=== PATIENT | female | born 1965 | race Hispanic/Latino ===

== ENCOUNTER 2021-01-04 06:00 | Day surgery (SDC) | payer BC ==
[2020-12-27 15:53] LABS: BASOPHILS % (AUTO) 0.5 % (0.0-5.0); EOSINOPHILS % (AUTO) 2.7 % (0.0-8.0); MEAN CORPUSCULAR HEMOGLOBIN 28.9 pg (27.0-33.0); MEAN CORPUSCULAR VOLUME 87.7 fL (79-99); NEUTROPHILS % (AUTO) 56.5 % (40.0-77.0); PLATELET COUNT (AUTO) 270 K/uL (130-400); RED BLOOD CELL COUNT(AUTO) 4.22 MIL/uL (4.00-5.50); RED CELL DISTRIBUTION WIDTH 13.5 % (11.0-15.5)
[2020-12-27 16:04] LABS: CREATININE 1.2 mg/dL (0.5-1.5)
[2021-01-03 11:36] VITALS: BP 133/68
[2021-01-04] VITALS (13 sets, daily range): BP systolic 108–126; BP diastolic 60–84
[~2021-01-04] VITALS: Ht 165.1 cm; Wt 107.3 kg
[~2021-01-04 06:00] MED LIST: ESOM40CA PO; FEXO1TAB5 PO; GABA300S PO; LACTATED RINGERS 1000ML 1,000 ML IV SCH; VENL150C2 PO
[2021-01-04] MEDS: CEFAZOLIN SODIUM 1 GM VIAL IVP SCH ×2 (06:00→08:00)
[2021-01-04] MEDS ORDERED: LIDOCAINE HCL 400MG/20ML VIAL ONE (07:45)
[2021-01-04] MEDS ORDERED: MIDAZOLAM HCL 1 MG/ML 2ML VIAL ONE ×2 (07:47→08:11)
[2021-01-04] MEDS ORDERED: FENTANYL CITRATE PF 50 MCG/1 ML 2ML VIAL ONE (07:47)
[2021-01-04] MEDS ORDERED: MEPERIDINE-PF 25 MG/ML SYG ONE (08:41)
== END 2021-01-04 09:45 | disposition home or self-care (01) ==
LOC: DAH 06:00
PROVIDERS: ATTEND Orthopaedic Surgery
DX: M65.311 Trigger thumb, right thumb (principal); Z20.822 Contact with and (suspected) exposure to COVID-19; E66.9 Obesity, unspecified; K21.9 Gastro-esophageal reflux disease without esophagitis; I10 Essential (primary) hypertension; Z68.39 Body mass index [BMI] 39.0-39.9, adult; Z90.49 Acquired absence of other specified parts of digestive tract; Z98.891 History of uterine scar from previous surgery
CPT/HCPCS: 26055; 36415; 80048; 85025; 93005; A4215; A4216; A4221; A4222; A4223 ×2; A4663; A5120; A6223; A6260; C9803; J0690; J2175; J2250 ×2; J3010; J3490; J7120; U0003